=== PATIENT | male | born 1955 | race Caucasian/White ===

== ENCOUNTER 2017-05-02 14:07 | Emergency (ER) | payer OTHER ==
[~2017-05-02] VITALS: Ht 185.4 cm; Wt 90.0 kg
[~2017-05-02 14:07] MED LIST: BENI40TA30 PO; BYST10TA2 PO; CLON.1 PO; DICL75 PO; FENO160T2 PO; ROBA750T3 PO; WELC3.753 PO
[2017-05-02 14:09] VITALS: BP 131/77; PULSE 66; RESP 17; TEMP 98.8; O2SAT 99
--- NOTE | 2017-05-02 15:11 | PD ---
HPI Chief Complaint: General Weakness Time Seen by Provider: 15:06 Travel History International Travel<30 days: No Contact w/Intl Traveler<30days: No Traveled to known affect area: No History of Present Illness HPI C/O A WEEK H/O GENERALIZED MUSCLE ACHES, OCCASIONAL COUGH, RUNNY NOSE, AND LOW GRADE FEVERS, BUT DENIES [place]/CP/ABD PAIN/N/V/D PFSH Social History Tobacco Use: No Allergies-Medications (Allergen,Severity, Reaction): Coded Allergies: No Known Allergies (Verified Allergy, Unknown, 05/04/03) Uncoded Allergies: NONE (Allergy, Unknown, 05/04/03) Reported Meds & Prescriptions Reported Meds & Active Scripts Active Ultram (Tramadol HCl) 50 Mg Tab 50 Mg PO Q6H PRN Zithromax Z-Marcos (Azithromycin) 250 Mg Dspk 250 Mg PO DIRECTED 500 MG (2 tabs) day 1, then 1 tab days 2-5. Catapres 0.1 mg (Clonidine HCl) 0.1 Mg Tab 1 Tab PO BID PRN Robaxin-750 (Methocarbamol) 750 Mg Tab 750 Mg PO QID PRN Diclofenac Sodium Dr (Diclofenac Sod) 75 Mg Tab 75 Mg PO BID PRN Reported Welchol 3.75 Gm packet (Colesevelam HCl) 3.75GM Marcos 1 Pkt PO TID Bystolic 10 Mg Tab (Nebivolol) 10 Mg Tab 10 Mg PO Fenofibrate 160 Mg Tab 160 Mg PO DAILY Benicar (Olmesartan) 40 Mg Tab 40 Mg PO DAILY Review of Systems Except as stated in HPI: all other systems reviewed are Neg HENT: Positive: Sore Throat, Rhinorrhea Respiratory: Positive: Cough Physical Exam Narrative GENERAL: SKIN: Warm and dry. HEAD: Atraumatic. Normocephalic. EYES: Pupils equal and round. No scleral icterus. No injection or drainage. ENT: No nasal bleeding or discharge. Mucous membranes pink and moist. NECK: Trachea midline. No JVD. CARDIOVASCULAR: Regular rate and rhythm. RESPIRATORY: No accessory muscle use. Clear to auscultation. Breath sounds equal bilaterally. GASTROINTESTINAL: Abdomen soft, non-tender, nondistended. MUSCULOSKELETAL: Extremities without clubbing, cyanosis, or edema. No obvious deformities. NEUROLOGICAL: Awake and alert. No obvious cranial nerve deficits. Motor grossly within normal limits. Five out of 5 muscle strength in the arms and legs. Normal speech. PSYCHIATRIC: Appropriate mood and affect; insight and judgment normal. Data Data Last Documented VS Vital Signs Date Time Temp Pulse Resp B/P (MAP) Pulse Ox O2 Delivery O2 Flow Rate FiO2 05/02/17 16:29 05/02/17 16:29 98.8 67 18 99 Room Air Orders Orders Urinalysis - C+S If Indicated (05/02/17 15:06) Group A Rapid Strep Screen (05/02/17 15:06) Influenzae A/B Antigen (05/02/17 15:06) Chest, Pa & Lat (05/02/17 15:06) Strep Culture (Group A) (05/02/17 15:12) Labs Laboratory Tests Test 05/02/17 15:12 Urine Color YELLOW Urine Turbidity CLEAR Urine pH 5.5 Urine Specific [place] 1.016 Urine Protein NEG mg/dL Urine Glucose (UA) NEG mg/dL Urine Ketones NEG mg/dL Urine Occult Blood NEG Urine Nitrite NEG Urine Bilirubin NEG Urine Urobilinogen LESS THAN 2.0 MG/DL Urine Leukocyte Esterase NEG Urine RBC LESS THAN 1 /hpf Urine WBC 1 /hpf Urine Squamous Epithelial Cells <1 /hpf Urine Bacteria OCC /hpf Microscopic Urinalysis Comment CULT NOT INDICATED MDM Medical Decision Making Medical Screen Exam Complete: Yes Emergency Medical Condition: Yes Medical Record Reviewed: Yes Differential Diagnosis FLU V STREP V PNA V BRONCHITIS Narrative Course PATIENT NEGATIVE FLU/STREP TEST, CXR IS NEG FOR PNA AT THIS POINT. Diagnosis Primary Impression: GENERALIZED MYALGIAS Patient Instructions: General Instructions, Viral Syndrome (ED) Scripts Tramadol (Ultram) 50 Mg Tab 50 MG PO Q6H Y for PAIN, #20 TAB 0 Refills Prov: Sabino Angeles MD 05/02/17 Azithromycin (Zithromax Z-Marcos) 250 Mg Dspk 250 MG PO DIRECTED for Infection, #1 DSPK 0 Refills 500 MG (2 tabs) day 1, then 1 tab days 2-5. Prov: Sabino Angeles MD 05/02/17 Disposition: 01 DISCHARGE HOME Condition: Stable Sabino Angeles MD May 02, 2017 15:11
[2017-05-02 15:36] LABS: BACTERIA, URINE OCC /hpf; BLOOD, URINE NEG (NEG); COMMENT (UR) CULT NOT INDICATED; CULTURE IF INDICATED CULT NOT INDICATED; GLUCOSE,URINE NEG (NEG); KETONE, URINE NEG (NEG); NITRITE,URINE NEG (NEG); PH, URINE 5.5 (5.0-8.5); SQUAMOUS EPITHELIAL CELL URINE <1 /hpf (0-5); URINE COLOR YELLOW (YELLW/STRAW)
[2017-05-02] MEDS ORDERED: ULTR50TA5 PO (16:12)
[2017-05-02] MEDS ORDERED: ZITHTAB PO (16:12)
--- NOTE | 2017-05-02 16:21 | RADRPT ---
EXAM DATE/TIME: 05/02/2017 15:55 [facility] COMPARISON: No previous studies available for comparison. INDICATIONS : Fever and flu symptoms for 10 days. MEDICAL HISTORY : Hypertension. SURGICAL HISTORY : None. ENCOUNTER: Initial ACUITY: 1 week PAIN SCORE: 2/10 LOCATION: Bilateral chest FINDINGS: There is mild coarsening of the interstitial markings centrally of undetermined chronicity. No eviden ce of focal alveolar consolidation or pleural effusion. Cardiomediastinal contours are satisfactory. Thoracic skeleton is intact. CONCLUSION: Mild central interstitial prominence of undetermined chronicity Philip Holden MD on May 02, 2017 at 16:00 Board Certified Radiologist. This report was verified electronically.
[2017-05-02 16:29] VITALS: BP 127/71; PULSE 67; RESP 18; TEMP 98.8; O2SAT 99
== END 2017-05-02 17:34 | disposition home or self-care (01) ==
LOC: NEPC 14:07
DX: M79.1 Myalgia (principal); R05 Cough
CPT/HCPCS: 71020; 81001; 87081; 87804; 87880; 99284

== ENCOUNTER → 2017-11-12 | Day surgery (SDC) | payer OTHER ==
[~2017-11-12] MED LIST changes: +GENTAMICIN SULFATE 80 MG/2 ML VIAL ONE; +LACTATED RINGER'S 1000 ML INJ 1,000 ML ONE; +MIDAZOLAM HCL 2 MG/2 ML VIAL ONE; +ONDANSETRON HCL 4 MG/2 ML VIAL IV PUSH ONE; +PROPOFOL 200 MG/20 ML AMP IV ONE; +SODIUM CHLORIDE 0.9% 100 ML BAG IV ONE; +TRAM50 PO; +ZITHTAB PO; +ceFAZolin INJ 1,000 MG VIAL ONE
--- NOTE | 2017-11-12 09:10 | TN ---
cc: Ash Berrios MD DATE OF SURGERY: 11/12/2017 PREOPERATIVE DIAGNOSES: Accelerated PSA (ICD-10 code of R97.20). POSTOPERATIVE DIAGNOSES: Accelerated PSA (ICD-10 code of R97.20). PROCEDURE: Transperineal prostate biopsy. INDICATIONS Mr. Negron is a 61-year-old gentleman with an accelerating PSA who does not have a rectum due to previous surgeries for his ulcerative colitis and presents now for transperineal prostate biopsy to rule out occult neoplastic process as the cause of his accelerating PSA. FINDINGS: Prostate measured 50.95 grams. The prostate capsule was intact. The seminal vesicles were normal. The urethra was normal. The central zone was normal. The peripheral zone was normal. There was a hypoechoic area in the midline apex in the peripheral zone consistent with a PI-RADS 3 on the MRI. No additional abnormalities determined. PROCEDURE NOTE: The procedure as well as risks and benefits were explained to the patient, informed consent was obtained. The patient was given preoperative oral ciprofloxacin 500 mg and intravenous gentamicin 80 mg and Ancef 1 gram flight control specialist to the OR. At this time after the patient was taken to the major operative theater, he was given total intravenous anesthesia as well as the intravenous antibiotics. After adequate anesthetic, he was placed in the high dorsal lithotomy position. His perineum and genitalia were prepped and draped in the usual sterile fashion. At this time, a Doppelganger 200 ultrasound machine and a 7.5 MHz transrectal ultrasound probe was placed against the perineum in the area where his rectum was. We were able to obtain adequate images just using this maneuver. We could get both transverse and sagittal views. At this time, using an 18 gauge biopsy needle, standard biopsies were taken of the base, mid, and apex of the prostate, both in the right and left lobes, as well as an additional biopsy that was taken to correspond with the MRI imaging of the PI-RADS 3 lesion. A total of 13 cores were taken using the 18 gauge biopsy needle and were sent for final pathological evaluation. The patient tolerated the procedure well. After adequate specimens were obtained, the patient then emerged from anesthetic without difficulty and transferred to the recovery room in stable condition to be discharged home when criteria is met. There were no obvious complications. MD SALAZAR Ramirez , 08:29 AM , 09:09 AM
== END | disposition home or self-care (01) ==
LOC: ESDC 06:28
PROVIDERS: ATTEND Urology
DX: R97.20 Elevated prostate specific antigen [PSA] (principal)
CPT/HCPCS: 00902; 55700; J0690; J1580; J2250; J2405; J3010; J7120